=== PATIENT | female | born 1990 | race Caucasian/White ===

== ENCOUNTER → 2021-08-13 | Outpatient (CLI) | payer BC, MEDICAID ==
--- NOTE | 2021-08-13 10:56 | Diagnostic Imaging Report ---
INDICATION: Right foot pain. 3 views. There are no fractures or dislocation. Thickening surfaces are smooth. Joint spaces are well maintained. No evidence of periarticular erosions. Does appear to be some soft tissue swelling over the dorsum of the distal foot. IMPRESSION: Soft tissue swelling with no bony abnormalities noted. Dictated by: Dictated on workstation # [id number]
== END ==
LOC: RAD FS 10:28
PROVIDERS: ATTEND Nurse Practitioner
DX: M79.671 Pain in right foot (principal)
CPT/HCPCS: 73630